=== PATIENT | female | born 1990 | race Caucasian/White ===

== ENCOUNTER → 2022-03-31 09:56 | Outpatient (CLI) | payer OTHER, SELFPAY ==
--- NOTE | 2022-03-31 09:59 | DI.US.S_ITS ---
ULTRASOUND OF LEFT BREAST: 03/31/2022 CLINICAL: Palpable left breast lump. No prior exams were available for comparison. Color flow and real-time ultrasound of the left breast were performed. Rod scale images of the real-time examination were reviewed. No significant abnormalities were seen sonographically in the left breast. IMPRESSION: NEGATIVE There is no abnormality seen in the left breast to correspond with the area of clinical concern at 11 o'clock, however, clinical correlation and clinical followup are recommended. Re-imaging can be performed if symptoms worsen or persist. This exam was interpreted at Station ID: [id number]. Electronically Signed By: Hasmukh Cho M.D. lc/:03/31/2022 10:39:31 letter sent: Followup Recommended Ultrasound BI-RADS: 1 Negative
== END ==
PROVIDERS: PCP Orthopaedic Surgery; Referring Provider Family Medicine; Visit Provider Family Medicine
DX: N63.21 Unspecified lump in the left breast, upper outer quadrant (principal)
CPT/HCPCS: 76642

== ENCOUNTER → 2022-06-21 08:54 | Outpatient (CLI) | payer OTHER, SELFPAY ==
[2022-06-21 09:53] LABS: COVID19 -Nasal RAPID Negative (Negative)
== END ==
PROVIDERS: Family Provider Orthopaedic Surgery; PCP Orthopaedic Surgery; Referring Provider Internal Medicine; Visit Provider Internal Medicine
DX: Z20.822 Contact with and (suspected) exposure to COVID-19 (principal)
CPT/HCPCS: 87635; C9803

== ENCOUNTER → 2022-06-21 08:56 | Outpatient (CLI) | payer OTHER, SELFPAY ==
--- NOTE | 2022-06-28 08:51 | PM.PFT.1 ---
Pulmonary Function Test Referral & Results Date Patient Seen: 06/21/22 Requesting provider: Bk Gomez Results: The spirometry demonstrates an FVC of 4.19 L which is 107% of predicted. The FEV1 was measured at 3.33 L which is 102% of predicted. The FEV1/FVC ratio was 79 which is 94% of predicted. Interpretation: This study demonstrates normal forced spirometry
== END ==
PROVIDERS: Family Provider Orthopaedic Surgery; PCP Orthopaedic Surgery; Referring Provider Chiropractor; Visit Provider Chiropractor
DX: R06.02 Shortness of breath (principal); Z20.822 Contact with and (suspected) exposure to COVID-19; J98.8 Other specified respiratory disorders
CPT/HCPCS: 87635; 94010; C9803

== ENCOUNTER → 2022-08-23 15:16 | Outpatient (CLI) | payer OTHER, SELFPAY ==
--- NOTE | 2022-08-23 | DI.US.S_ITS ---
PROCEDURE: US OB <= 14 WEEKS FETUS INDICATIONS: VIABILITY TECHNIQUE: Real-time scanning was performed of the fetus and maternal pelvic organs, with image documentation. Endovaginal scanning was also performed to better visualize the fetus and maternal ovaries. COMPARISON: None. FINDINGS: Single living intrauterine gestation with crown-rump length of 2 mm and mean gestational sac diameter of 2.5 cm. Cardiac motion is identified with real-time visualization, however the real estate manager reports that the heart rate was unable to be measured quantitatively utilizing M-mode. IMPRESSION: Single living intrauterine gestation with estimated gestational age of 7 weeks 4 days based on the mean gestational sac diameter and 5 weeks 5 days based on the crown-rump length. We strive to produce accurate, complete, and clear reports of imaging services. To assist us in improving patient care, this report was composed using standard report templates and voice recognition software. Therefore, it may contain abnormal punctuation, insertions and/or omissions. Occasional wrong-word or sound-alike substitutions may occur. Though we review the report and make efforts to correct it, we do recommend that the report be read carefully in proper context to recognize any text inaccuracies. Dictated by: Rg Scott M.D. on 08/23/2022 at 16:39 Approved by: Rg Scott M.D. on 08/23/2022 at 16:41
== END ==
PROVIDERS: Family Provider Orthopaedic Surgery; PCP Orthopaedic Surgery; Referring Provider Advanced Practice Midwife; Visit Provider Advanced Practice Midwife
DX: O36.80X0 Pregnancy with inconclusive fetal viability, not applicable or unspecified (principal); Z3A.01 Less than 8 weeks gestation of pregnancy
CPT/HCPCS: 76801